=== PATIENT | male | born 1975 | race Caucasian/White ===

== ENCOUNTER 2016-12-28 14:17 | Emergency (ER) | payer OTHER ==
[2016-12-28 14:42] VITALS: BP 131/86; PULSE 68; RESP 20; TEMP 98.6
--- NOTE | 2016-12-28 14:59 | ED ---
Lower Extremity Injury HPI - General Chief Complaint: Extremity Injury, Lower Stated Complaint: Leg Pain Time Seen by Provider: 12/28/16 14:31 Source: patient, RN notes reviewed Mode of arrival: wheelchair Limitations: no limitations - History of Present Illness Initial Comments: Patient is a 40-year-old male with chief complaint of left calf pain for approximately one day. Patient reports that he was lifting a play table in his backyard and was on his toes and he felt a popping sensation. Patient reports that the entire back of his calf hurts. He denies any redness to the area. Patient states that he has pain with dorsiflexion of the foot. He denies any peripheral paresthesias or decreased sensation over the foot or ankle. He states that he is able to bear weight over his foot and walk. He states that it just hurts whenever he has to dorsiflex the ankle in any way. Patient denies any previous leg fractures. Patient has a past medical history of chronic spine issues. He reports that he takes chronic pain medication.Patient denies any recent fever, chills, shortness of breath, chest pain, back pain, abdominal pain, nausea vomiting, numbness or tingling, dysuria or hematuria, constipation or diarrhea, headaches or visual changes, or any other current symptoms - Related Data Home Medications Medication Instructions Recorded Confirmed traMADol HCl [Ultram] 1 tab PO DIRECTED 12/28/16 12/28/16 Previous Rx's Medication Instructions Recorded Naproxen 500 mg PO Q12HR #20 tab 12/28/16 Allergies Allergy/AdvReac Type Severity Reaction Status Date / Time No Known Allergies Allergy Verified 12/28/16 14:42 Review of Systems ROS Statement: Those systems with pertinent positive or pertinent negative responses have been documented in the HPI. ROS Other: All systems not noted in ROS Statement are negative. Past Medical History Additional Past Medical History / Comment(s): neck and back disc problem History of Any Multi-Drug Resistant Organisms: None Reported Past Surgical History: Hernia Repair Additional Past Surgical History / Comment(s): hemmorhoids Past Psychological History: No Psychological Hx Reported Smoking Status: Never smoker Past Alcohol Use History: Occasional Past Drug Use History: Marijuana General Exam Limitations: no limitations General appearance: alert, in no apparent distress Head exam: Present: atraumatic, normocephalic, normal inspection Eye exam: Present: normal appearance, PERRL, EOMI. Absent: scleral icterus, conjunctival injection, periorbital swelling ENT exam: Present: normal exam, mucous membranes moist Neck exam: Present: normal inspection. Absent: tenderness, meningismus, lymphadenopathy Respiratory exam: Present: normal lung sounds bilaterally. Absent: respiratory distress, wheezes, rales, rhonchi, stridor Cardiovascular Exam: Present: regular rate, normal rhythm, normal heart sounds. Absent: systolic murmur, diastolic murmur, rubs, gallop, clicks GI/Abdominal exam: Present: soft, normal bowel sounds. Absent: distended, tenderness, guarding, rebound, rigid Extremities exam: Present: normal inspection, full ROM, normal capillary refill. Absent: tenderness, pedal edema, joint swelling, calf tenderness Left Upper Leg exam: Present: normal inspection, full ROM Knee exam: Present: normal inspection, full ROM Lower Leg exam: Present: normal inspection, full ROM, tenderness (To palpation of her posterior calf. Patient is tender with dorsiflexion of the gastrocnemius and soleus.). Absent: swelling, abrasion, laceration, ecchymosis , deformity, crepitus, dislocation Ankle exam: Present: normal inspection, full ROM Foot/Toe exam: Present: normal inspection, full ROM Neurovascular tendon exam: Present: no vascular compromise Gait: observed and normal Back exam: Present: normal inspection Neurological exam: Present: alert, oriented X3, CN II-XII intact Psychiatric exam: Present: normal affect, normal mood Skin exam: Present: warm, dry, intact, normal color. Absent: rash Course Vital Signs 12/28/16 14:33 Temperature 98.6 F Pulse Rate 68 Respiratory 20 Rate Blood Pressure 131/86 O2 Sat by Pulse 96 Oximetry Medical Decision Making - Medical Decision Making Patient is a 40-year-old male complaining of left calf pain after a popping sensation from lifting a heavy table. Patient reports that he was on his toes during initial injury. He reports that currently he is having any pain with dorsiflexion of the ankle. He denies any peripheral paresthesias. X-ray of tib -fib is obtained. He is able to bear weight over his leg. Patient reports that he cannot follow-up with [facility] as he is once tried to jose l them. I will give the patient for advanced orthopedics in [facility]. X-rays negative for any acute process. Patient was given an Danny wrap over the leg. Our the patient for antibiotic treatment medications. Patient is given information for the referral. - Radiology Data Radiology results: report reviewed X-ray of tib-fib reviewed as negative for any acute process. Disposition Clinical Impression: Pain of left calf, Muscle strain, lower leg Disposition: HOME SELF-CARE Condition: Good Instructions: Muscle Strain (ED) Additional Instructions: Patient is to elevate extremity and to apply ice over the area. Impression Danny wrap whenever ambulate. Follow-up with orthopedic physician if symptoms continue to persist. Return to the emergency department if any alarming signs or symptoms occur. Prescriptions: Naproxen 500 mg PO Q12HR #20 tab Referrals: Thomas Acosta MD [Primary Care Provider] - 1-2 days Iván Feliciano DO [Doctor of Osteopathic Medicine] - 1-2 days Time of Disposition: 15:49
--- NOTE | 2016-12-28 15:45 | XR ---
Left leg HISTORY: Trauma and pain 2 views of the left leg No comparisons Bone mineralization, joint spaces and alignment are maintained IMPRESSION: No fracture or dislocation.
== END 2016-12-28 15:57 | disposition home or self-care (01) ==
LOC: EC 14:17
DX: S86.912A Strain of unspecified muscle(s) and tendon(s) at lower leg level, left leg, initial encounter (principal); Z79.899 Other long term (current) drug therapy; X50.0XXA Overexertion from strenuous movement or load, initial encounter; Y93.89 Activity, other specified; Y92.096 Garden or yard of other non-institutional residence as the place of occurrence of the external cause
CPT/HCPCS: 99283

== ENCOUNTER → 2017-01-07 | Outpatient (CLI) | payer OTHER ==
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
--- NOTE | 2017-01-07 16:47 | MR ---
EXAMINATION TYPE: MR lumbar spine wo con DATE OF EXAM: 01/07/2017 4:35 PM COMPARISON: NONE HISTORY: LBP, limited movement, BLE radic, worse in the left, back injury lifting furniture per patie nt on prescription. TECHNIQUE: Multiplanar, multisequence imaging of the lumbar spine is performed without IV contrast. FINDINGS: Sagittal images of the lumbar spine show vertebral body heights and alignment to appear sat isfactory. There is disc desiccation with mild disc space narrowing at L2-L3 through L4-L5 levels. Sm all posterior disc herniation L4-L5 level is seen on sagittal images. Increased signal posteriorly co nsistent with annular tears noted at this level. The conus medullaris is normal in position and sign al ending at superior L1 vertebral body level. The bone marrow signal intensity is overall heterogen eous. There is no significant spurring seen. Axial images show the T12-L1, L1-L2, and L2-L3 levels to appear within normal limits. Axial images at L3-L4 level show mild broad disc bulge minimally effacing the anterior thecal sac on axial image 15, bilateral neural foramina show mild anterior inferior neural foraminal narrowing seen best on sagittal images. Axial images at L4-L5 level show mild broad disc bulge minimally effacing the anterior thecal sac and mild facet degenerative changes bilaterally. Bilateral neural foramina are grossly patent. Axial images at L5-S1 level show mild facet degenerative changes bilaterally. Spinal canal is preserv ed and bilateral neural foramina are patent. IMPRESSION: Some multilevel mild degenerative changes in the mid to lower lumbar spine as detailed ab ove, no significant finding is seen to account for patient's radiculopathy type symptoms however.
== END | disposition home or self-care (01) ==
LOC: RADMRIMAIN 15:18
PROVIDERS: ATTEND Nurse Practitioner Acute Care
DX: M47.816 Spondylosis without myelopathy or radiculopathy, lumbar region (principal); R51 Headache
CPT/HCPCS: 70551; 72148

== ENCOUNTER → 2018-07-24 | Outpatient (CLI) | payer OTHER ==
--- NOTE | 2018-07-24 22:34 | MR ---
MRI CERVICAL SPINE: CLINICAL HISTORY: Cervicalgia per order. Headaches with neck pain and pain into left shoulder for 7 y ears per patient. TECHNIQUE: Multiplanar, multisequence imaging of the cervical spine is performed without IV contrast. COMPARISON: None. FINDINGS: Coronal images show dextroconvex scoliosis centered in the upper thoracic spine Sagittal im ages of the cervical spine show the craniocervical junction to appear within normal limits. The cerv ical and upper thoracic spinal cord is normal in course, caliber, and signal. Vertebral alignment is anatomic. The vertebral body and intravertebral disk heights are normal. Multilevel small posterior disc herniations are seen on sagittal images most prominent at C6-C7 level effacing anterior thecal sac. The bone marrow signal intensity is within normal limits. Axial images at the C2-C3 level is felt within normal limits. Axial images at the C3-C4 level show tiny central disc protrusion mildly facing anterior thecal sac, bilateral neural foramina are patent. Axial images at C4-C5 level showed broad based left paracentral disc protrusion mildly facing anterio r thecal sac, bilateral neural foramina are patent. Axial images at C5-C6 level broad-based left paracentral disc protrusion effacing the anterolateral t hecal sac and causing asymmetric moderate left-sided neural foraminal narrowing. There is mild right- sided neural foraminal narrowing due to small foraminal disc protrusion component. Axial images at C6-C7 level show most prominent broad-based left paracentral disc protrusion effacing ventral thecal sac and causing mild to moderate left-sided neural foraminal narrowing. Right-sided n eural foramen is patent. Axial images at C7-T1 level are felt within normal limits. IMPRESSION: Multilevel degenerative changes in cervical spine with most prominent disc herniations no yolie at C5-C6 and C6-C7 level as detailed above..
== END | disposition home or self-care (01) ==
LOC: RADMRIMAIN 21:51
PROVIDERS: ATTEND Nurse Practitioner Acute Care
DX: M50.222 Other cervical disc displacement at C5-C6 level (principal); M47.812 Spondylosis without myelopathy or radiculopathy, cervical region
CPT/HCPCS: 72141

== ENCOUNTER 2020-05-12 12:54 | Emergency (ER) | payer OTHER ==
[2020-05-12 12:59] VITALS: BP 120/79; PULSE 98; RESP 16; TEMP 98.2
[2020-05-12] MEDS ORDERED: LIDOCAINE 1% INJ 10MG/ML (20 ML MDV) SQ ONE (13:09)
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
== END 2020-05-12 13:45 | disposition home or self-care (01) ==
LOC: EC 12:54
DX: S61.411A Laceration without foreign body of right hand, initial encounter (principal); Z87.891 Personal history of nicotine dependence; Z79.891 Long term (current) use of opiate analgesic; W54.8XXA Other contact with dog, initial encounter; Y93.89 Activity, other specified
CPT/HCPCS: 99283; 12002; J2001

== ENCOUNTER 2023-11-23 10:48 | Emergency (ER) | payer OTHER ==
[2023-11-23 11:10] VITALS: TEMP 97.7
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
--- NOTE | 2023-11-23 11:52 | XR ---
Right shoulder. HISTORY: Pain COMPARISON: None. TECHNIQUE: 3 views the right shoulder were obtained. FINDINGS: There is no fracture, dislocation, intraosseous, intra-articular or soft tissue abnormality. IMPRESSION: No significant abnormality seen.
[2023-11-23 13:00] VITALS: BP 142/79; PULSE 78; RESP 18
== END 2023-11-23 12:42 | disposition home or self-care (01) ==
LOC: EC 10:48
DX: M25.511 Pain in right shoulder (principal); F12.90 Cannabis use, unspecified, uncomplicated; Z87.891 Personal history of nicotine dependence
CPT/HCPCS: 99283

== ENCOUNTER 2024-04-06 09:23 | Emergency (ER) | payer OTHER ==
[2024-04-06 09:28] VITALS: RESP 18; TEMP 98.1
--- NOTE | 2024-04-06 09:42 | ED ---
Wound/Laceration HPI - General Chief Complaint: Extremity Injury, Upper Stated Complaint: finger lac Time Seen by Provider: 04/06/24 09:29 Source: patient, RN notes reviewed Mode of arrival: ambulatory Limitations: no limitations - History of Present Illness Initial Comments: This is a 48-year-old male who presents to the emergency department for a lacer ation to his left index finger. States that he cut this on an electric chainsaw earlier today. States that he has 3 separate lacerations to the finger. Pain is controlled at this time. Not taking any blood thinners. Tetanus vaccine is up-to-date. - Related Data Home Medications Medication Instructions Recorded Confirmed traMADol HCl [Ultram] 1 tab PO DIRECTED 12/28/16 12/28/16 Previous Rx's Medication Instructions Recorded Naproxen 500 mg PO Q12HR #20 tab 12/28/16 Lidocaine 5% Patch [Lidoderm 5% 1 patch TOPICAL DAILY #10 patch 11/23/23 Patch] Allergies Allergy/AdvReac Type Severity Reaction Status Date / Time No Known Allergies Allergy Verified 04/06/24 09:28 Review of Systems ROS Statement: Those systems with pertinent positive or pertinent negative responses have been documented in the HPI. ROS Other: All systems not noted in ROS Statement are negative. Past Medical History Additional Past Medical History / Comment(s): neck and back disc problem, TBI History of Any Multi-Drug Resistant Organisms: None Reported Past Surgical History: Hernia Repair Additional Past Surgical History / Comment(s): hemmorhoids Past Psychological History: No Psychological Hx Reported Smoking Status: Former smoker Past Alcohol Use History: Occasional Past Drug Use History: Marijuana General Exam Limitations: no limitations General appearance: alert, in no apparent distress Head exam: Present: atraumatic, normocephalic, normal inspection Respiratory exam: Present: normal lung sounds bilaterally. Absent: respiratory distress, wheezes, rales, rhonchi, stridor Cardiovascular Exam: Present: regular rate, normal rhythm, normal heart sounds. Absent: systolic murmur, diastolic murmur, rubs, gallop, clicks Neurological exam: Present: alert, oriented X3, CN II-XII intact Psychiatric exam: Present: normal affect, normal mood Skin exam: Present: other (3 separate 1 cm lacerations to the dorsal aspect of the left index finger. No active bleeding.) Course Vital Signs 04/06/24 04/06/24 09:24 10:53 Temperature 98.1 F 98.1 F Pulse Rate 77 76 Respiratory 18 18 Rate Blood Pressure 155/88 150/82 O2 Sat by Pulse 96 99 Oximetry Procedures - Laceration Laceration #1 Consent Obtained: verbal consent Indication: laceration Site: hand Size (cm): 1 Description: linear Depth: simple, single layer Anesthetic Used: lidocaine 1% Anesthesia Technique: local infiltration Amount (mls): 1 Pre-repair: wound explored, irrigated extensively Type of Sutures: nylon Size of Sutures: 5-0 Number of Sutures: 1 Technique: other (figure of 8) Laceration #2 Consent Obtained: verbal consent Indication: laceration Site: hand Size (cm): 1 Description: linear Depth: simple, single layer Anesthetic Used: lidocaine 1% Anesthesia Technique: local infiltration Amount (mls): 1 Pre-repair: wound explored, irrigated extensively Type of Sutures: nylon Size of Sutures: 5-0 Number of Sutures: 1 Technique: other (figure of 8) Laceration #3 Consent Obtained: verbal consent Indication: laceration Site: hand Size (cm): 1 Description: linear Depth: simple, single layer Anesthetic Used: lidocaine 1% Anesthesia Technique: local infiltration Amount (mls): 1 Pre-repair: wound explored, irrigated extensively Type of Sutures: nylon Size of Sutures: 5-0 Number of Sutures: 1 Technique: other (figure of 8) Medical Decision Making - Medical Decision Making This is a 48-year-old male who presents to the emergency department for lacerations to the left index finger. Was pt. sent in by a medical professional or institution? @ -No Did you speak to anyone other than the patient for history? @ -No Did you review nursing and triage notes? @ -Yes, and I agree, it is accurate with regards to the patient's symptoms. Were old charts reviewed? @ -No Differential Diagnosis? @ -Differential Lacerations: Laceration, abrasion, abscess, this is not meant to be an all-inclusive list. EKG interpreted by me (3pts min.)? @ -Not obtained X-rays interpreted by me (1pt min.)? @ -Not obtained CT interpreted by me (1pt min.)? @ -Not obtained U/S interpreted by me (1pt. min.)? @ -Not obtained What testing was considered but not performed? (CT, X-rays, U/S, labs)? Why? @ -None What meds were considered but not given? Why? @ -None Did you discuss the management of the patient with other professionals? @ -No Did you reconcile home meds? @ -No Was smoking cessation discussed for >3mins.? @ -No Was critical care preformed (if so, how long)? @ -No Were there social determinants of health that impacted care today? How? (Homelessness, low income, unemployed, alcoholism, drug addiction, transportation, low edu. Level, literacy, decrease access to med. care, halfway, rehab)? @ -No Was there de-escalation of care discussed even if they declined? (Discuss DNR or withdrawal of care, Hospice)? @ -No What co-morbidities impacted this encounter? (DM, HTN, Smoking, COPD, CAD, Cancer, CVA, Hep., AIDS, mental health diagnosis, sleep apnea, morbid obesity)? @ -None Was patient admitted / discharged? @ -Discharged. The lacerations were thoroughly cleansed and each wound was closed with 1 [id number] suture. Patient's tetanus vaccine is already up-to-date. Advised ibuprofen and Tylenol as needed for pain relief and returning in 5 to 7 days for suture removal. Undiagnosed new problem with uncertain prognosis? @ -None Drug Therapy requiring intensive monitoring for toxicity (Heparin, Nitro, Insulin, Cardizem)? @ -None Were any procedures done? @ -Laceration repair with sutures Diagnosis/symptom? @ -Lacerations Acute, or Chronic, or Acute on Chronic? @ -Acute Uncomplicated (without systemic symptoms) or Complicated (systemic symptoms)? @ -Uncomplicated Side effects of treatment? @ -None Exacerbation, Progression, or Severe Exacerbation] @ -Not applicable Poses a threat to life or bodily function? @ -No Return precautions reviewed in depth, the patient is instructed to return to the emergency department with any new, worsening, or concerning symptoms. Patient verbalized understanding. This case was discussed in detail with the attending ED physician, Dr. Ann. Presentation, findings, and treatment plan discussed in detail as well. Disposition Clinical Impression: Laceration Disposition: HOME SELF-CARE Instructions (If sedation given, give patient instructions): Care For Your Stitches (ED) Additional Instructions: Return to the emergency department with any new, worsening, or concerning symptoms and in 5-7 days for removal of the stitches. Alternate with ibuprofen and Tylenol as needed for pain relief. Follow up with your primary care provider in 1-2 days. Is patient prescribed a controlled substance at d/c from ED?: No Referrals: Edenilson Mcnair [Primary Care Provider] - 1-2 days Time of Disposition: 10:33
[2024-04-06] MEDS: LIDOCAINE 1% INJ 10MG/ML (20 ML MDV) SQ ONE (09:46)
[2024-04-06 10:55] VITALS: BP 150/82; PULSE 76
== END 2024-04-06 10:55 | disposition home or self-care (01) ==
LOC: EC 09:23
DX: S61.211A Laceration without foreign body of left index finger without damage to nail, initial encounter (principal); Z87.891 Personal history of nicotine dependence; W29.3XXA Contact with powered garden and outdoor hand tools and machinery, initial encounter
CPT/HCPCS: 12002; 99283; J2001